=== PATIENT | female | born 1980 | race Hispanic/Latino ===

== ENCOUNTER 2016-06-30 09:25 | Emergency (ER) | payer BC ==
[2016-06-30 09:59] LABS: Basophils % (Auto) 0.4 % (0.0-1.8); Eosinophils % (Auto) 4.2 % (0.0-4.3); Hematocrit 42.8 % (30.3-42.9); Hemoglobin 14.2 gm/dl (10.1-14.3); Mean Corpuscular HGB Conc 33 % (30-34); Mean Corpuscular Hemoglobin 30 pg (28-32); Mean Corpuscular Volume 90 fl (79-97); Platelet Count 243 K/mm3 (140-440); Red Blood Count 4.75 M/mm3 (3.65-5.03); Red Cell Distribution Width 12.7 % (13.2-15.2); White Blood Count 5.9 K/mm3 (4.5-11.0)
--- NOTE | 2016-06-30 10:20 | Emergency Department Report ---
ED Abdominal Pain HPI - General Chief Complaint: Abdominal Pain Stated Complaint: ABD PAIN Time Seen by Provider: 06/30/16 10:17 Source: patient Mode of arrival: Ambulatory Limitations: No Limitations - History of Present Illness Initial Comments: The patient admits to having similar problems in the past. She states that she' s had irregular menses and has been treated with control pill there are. She is seeing now to workers compensation attorney in the [place] area. she's been evaluated by [facility] emergency department before. He has had similar left sided abdominal pain. However, she states at this time the pain is qualitatively different. She tells me that she doesn't want a prescription for Ultram because it "makes her sick". She's had no recent fever or chills. She does not complain of dysuria. She states that she uses 3 tampons a day recently but has no current bleeding. MD Complaint: abdominal pain, flank pain -: Gradual, hour(s) Location: LUQ, LLQ, L flank Radiation: none Migration to: no migration Severity: moderate Quality: aching Consistency: intermittent Improves With: nothing Worsens With: nothing Context: other - Related Data Home Medications Medication Instructions Recorded Confirmed Last Taken Norgestimate-Ethinyl Estradiol 1 each PO DAILY 06/30/16 06/30/16 06/29/16 [Sprintec 28 Day Tablet] Previous Rx's Medication Instructions Recorded Last Taken Type HYDROcodone/APAP 5-325 [[place] 1 each PO Q6HR PRN #10 tablet 06/30/16 Unknown Rx 5-325 mg TAB] Allergies Allergy/AdvReac Type Severity Reaction Status Date / Time tramadol Allergy Vomiting Verified 06/30/16 09:32 ED Review of Systems ROS: Stated complaint: ABD PAIN Other details as noted in HPI Constitutional: denies: chills, fever Eyes: denies: eye pain, eye discharge, vision change ENT: denies: ear pain, throat pain Respiratory: denies: cough, shortness of breath, wheezing Cardiovascular: denies: chest pain, palpitations Endocrine: no symptoms reported Gastrointestinal: as per HPI, abdominal pain. denies: nausea, diarrhea Genitourinary: denies: urgency, dysuria, discharge Musculoskeletal: as per HPI, back pain. denies: joint swelling, arthralgia Skin: denies: rash, lesions Neurological: denies: headache, weakness, paresthesias Psychiatric: denies: anxiety, depression Hematological/Lymphatic: denies: easy bleeding, easy bruising ED Past Medical Hx - Past Medical History Previous Medical History?: Yes Additional medical history: ovarian cyst - Surgical History Past Surgical History?: No - Social History Smoking Status: Never Smoker Substance Use Type: None - Medications Home Medications: Home Medications Medication Instructions Recorded Confirmed Last Taken Type HYDROcodone/APAP 5-325 [[place] 1 each PO Q6HR PRN #10 tablet 06/30/16 Unknown Rx 5-325 mg TAB] Norgestimate-Ethinyl Estradiol 1 each PO DAILY 06/30/16 06/30/16 06/29/16 History [Sprintec 28 Day Tablet] ED Physical Exam - General Limitations: No Limitations General appearance: alert, in no apparent distress - Head Head exam: Present: atraumatic, normocephalic - Eye Eye exam: Present: normal appearance. Absent: scleral icterus - ENT ENT exam: Present: mucous membranes moist - Neck Neck exam: Present: normal inspection - Respiratory Respiratory exam: Present: normal lung sounds bilaterally. Absent: respiratory distress - Cardiovascular Cardiovascular Exam: Present: regular rate, normal rhythm. Absent: systolic murmur, diastolic murmur, rubs, gallop - GI/Abdominal GI/Abdominal exam: Present: soft, normal bowel sounds. Absent: distended, tenderness, guarding, rebound, rigid, organomegaly, mass, bruit, pulsatile mass , hernia - Extremities Exam Extremities exam: Present: normal inspection - Back Exam Back exam: Present: normal inspection. Absent: CVA tenderness (R), CVA tenderness (L), muscle spasm, paraspinal tenderness, vertebral tenderness - Neurological Exam Neurological exam: Present: alert, oriented X3, CN II-XII intact. Absent: motor sensory deficit - Psychiatric Psychiatric exam: Present: normal affect, normal mood - Skin Skin exam: Present: warm, dry, intact, normal color. Absent: rash ED Course Vital Signs 06/30/16 06/30/16 06/30/16 09:29 09:32 09:36 Temperature 97.9 F Pulse Rate 111 H Respiratory 18 18 Rate Blood Pressure 148/64 O2 Sat by Pulse 100 98 98 Oximetry 06/30/16 06/30/16 10:00 11:18 Temperature Pulse Rate 79 Respiratory 14 Rate Blood Pressure 140/98 O2 Sat by Pulse 97 100 Oximetry - Reevaluation(s) Reevaluation #1: Patient was given analgesia. She did not complain of any severe pain. Her symptoms improved. Her ultrasound showed nothing acute was normal except for uterine fibroid. Outpatient follow-up was advised. 06/30/16 13:15 ED Medical Decision Making - Lab Data Result diagrams: 06/30/16 09:40 06/30/16 09:40 Laboratory Results - last 24 hr 06/30/16 06/30/16 09:40 09:40 WBC 5.9 RBC 4.75 Hgb 14.2 Hct 42.8 MCV 90 MCH 30 MCHC 33 RDW 12.7 L Plt Count 243 Lymph % (Auto) 22.3 [place] % (Auto) 7.5 H Eos % (Auto) 4.2 Baso % (Auto) 0.4 Lymph # 1.3 Fall[place] # 0.4 Eos # 0.2 Baso # 0.0 Seg Neutrophils % 65.6 Seg Neutrophils # 3.9 HCG, Qual Negative Laboratory Results - last 24 hr 06/30/16 06/30/16 06/30/16 09:40 09:40 09:40 WBC 5.9 RBC 4.75 Hgb 14.2 Hct 42.8 MCV 90 MCH 30 MCHC 33 RDW 12.7 L Plt Count 243 Lymph % (Auto) 22.3 [place] % (Auto) 7.5 H Eos % (Auto) 4.2 Baso % (Auto) 0.4 Lymph # 1.3 Fallon # 0.4 Eos # 0.2 Baso # 0.0 Seg Neutrophils % 65.6 Seg Neutrophils # 3.9 Sodium 139 Potassium 3.9 Chloride 102.5 Carbon Dioxide 25 Anion Gap 15 BUN 8 Creatinine 0.5 L Estimated GFR > 60 BUN/Creatinine Ratio 16.00 Glucose 113 H Calcium 9.6 Total Bilirubin 0.5 AST 16 ALT 11 Alkaline Phosphatase 38 Total Protein 7.6 Albumin 4.8 Albumin/Globulin Ratio 1.7 Lipase 37 HCG, Qual Negative Urine Color Urine Turbidity Urine pH Ur Specific [place] Urine Protein Urine Glucose (UA) Urine Ketones Urine Blood Urine Nitrite Urine Bilirubin Urine Urobilinogen Ur Leukocyte Esterase Urine WBC (Auto) Urine RBC (Auto) U Epithel Cells (Auto) Urine Opiates Screen Urine Methadone Screen Ur Barbiturates Screen Ur Phencyclidine Scrn Ur Amphetamines Screen U Benzodiazepines Scrn Urine Cocaine Screen U Marijuana (THC) Screen Drugs of Abuse Note 06/30/16 06/30/16 11:28 11:28 WBC RBC Hgb Hct MCV MCH MCHC RDW Plt Count Lymph % (Auto) Fall[place] % (Auto) Eos % (Auto) Baso % (Auto) Lymph # Fall[place] # Eos # Baso # Seg Neutrophils % Seg Neutrophils # Sodium Potassium Chloride Carbon Dioxide Anion Gap BUN Creatinine Estimated GFR BUN/Creatinine Ratio Glucose Calcium Total Bilirubin AST ALT Alkaline Phosphatase Total Protein Albumin Albumin/Globulin Ratio Lipase HCG, Qual Urine Color Straw Urine Turbidity Clear Urine pH 7.0 Ur Specific [place] 1.008 Urine Protein <15 mg/dl Urine Glucose (UA) Neg Urine Ketones Neg Urine Blood Sm Urine Nitrite Neg Urine Bilirubin Neg Urine Urobilinogen < 2.0 Ur Leukocyte Esterase Neg Urine WBC (Auto) < 1.0 Urine RBC (Auto) 2.0 U Epithel Cells (Auto) 1.0 Urine Opiates Screen Presumptive negative Urine Methadone Screen Presumptive negative Ur Barbiturates Screen Presumptive negative Ur Phencyclidine Scrn Presumptive negative Ur Amphetamines Screen Presumptive negative U Benzodiazepines Scrn Presumptive negative Urine Cocaine Screen Presumptive negative U Marijuana (THC) Screen Presumptive negative Drugs of Abuse Note Disclamer Critical care attestation.: If time is entered above; I have spent that time in minutes in the direct care of this critically ill patient, excluding procedure time. ED Disposition Clinical Impression: Left flank pain, Dysfunctional uterine bleeding Abdominal pain Qualifiers: Abdominal location: left lower quadrant Qualified Code(s): R10.32 - Left lower quadrant pain Disposition: DISCHARGED TO HOME OR SELFCARE Is pt being admited?: No Does the pt Need Aspirin: No Condition: Stable Instructions: Abdominal Pain (ED), Flank Pain (ED), Dysfunctional Uterine Bleeding (ED) Additional Instructions: Follow-up with your usual workers compensation attorney. Return any acute change or problem. Prescriptions: HYDROcodone/APAP 5-325 [[place] 5-325 mg TAB] 1 each PO Q6HR PRN #10 tablet PRN Reason: pain Referrals: PRIMARY CARE,MD [Primary Care Provider] - 3-5 Days usual, workers compensation attorney [Other] - 2-3 Days Time of Disposition: 13:35
[2016-06-30 10:22] LABS: Alanine Aminotransferase 11 units/L (7-56); Albumin 4.8 g/dL (3.9-5); Albumin/Globulin Ratio 1.7 %; Alkaline Phosphatase 38 units/L (35-129); Anion Gap 15 mmol/L; Bilirubin,Total 0.5 mg/dL (0.1-1.2); Blood Urea Nitrogen 8 mg/dL (7-17); Calcium 9.6 mg/dL (8.4-10.2); Carbon Dioxide 25 mmol/L (22-30); Chloride 102.5 mmol/L (98-107); Glucose 113 mg/dL (65-100); Lipase 37 units/L (13-60); Potassium 3.9 mmol/L (3.6-5.0); Sodium 139 mmol/L (137-145); Total Protein 7.6 g/dL (6.3-8.2)
[2016-06-30] MEDS ORDERED: TORADOL IV ONE (10:56)
[2016-06-30 11:28] VITALS: BP 140/98
[2016-06-30 11:30] LABS: Urine Drugs of Abuse Note Disclamer
[2016-06-30 11:50] LABS: Bilirubin,Urine NEG (Negative); Blood,Urine SM (Negative); Ketones,Urine NEG (Negative); Leukocyte Esterase,Urine NEG (Negative); Nitrite,Urine NEG (Negative); Protein,Urine <15 mg/dL mg/dL (Negative); Urobilinogen,Urine < 2.0 mg/dL (<2.0); WBC,Urine < 1.0 /HPF (0.0-6.0)
--- NOTE | 2016-06-30 12:56 | Ultrasound Report ---
Complete abdominal ultrasound: Images of the liver, spleen, pancreas, and gallbladder are unremarkable. The diameter of the CBD is 3.9 mm. The diameter of the proximal abdominal aorta is 1.6 cm. The right renal length is 13.2 cm and the left length is 12.5 cm. Both kidneys appeared echogenically normal. Impression: No significant findings. Pelvic ultrasound: Endovaginal and transabdominal imaging is performed. The uterus is anteverted and measures 3.4 x 5.4 x 6.2 cm. It is generally homogeneous. There is a small posterior relatively isoechoic nodule measuring 8 mm. The endometrial thickness is 4.4 mm and unremarkable. The left ovary measures 2.3 cm and the right measures 2.2 cm. Both are echogenically unremarkable. Minimal free fluid. Impression: Small uterine fibroid. No other findings.
[2016-06-30] MEDS ORDERED: NORCO 5/325 PO ONE (13:32)
== END 2016-06-30 14:35 | disposition home or self-care (01) ==
LOC: ED 09:25
DX: N93.8 Other specified abnormal uterine and vaginal bleeding (principal); R10.32 Left lower quadrant pain
CPT/HCPCS: 36415; 76700; 76830; 76856; 80053; 80307; 81001; 83690; 84703; 85025; 96374; 99284; J1885

== ENCOUNTER 2017-04-15 12:20 | Emergency (ER) | payer BC ==
[2017-04-15] MEDS ORDERED: ASPIRIN PO ONE (12:30)
[2017-04-15 13:18] LABS: Basophils % (Auto) 0.2 % (0.0-1.8); Eosinophils % (Auto) 0.3 % (0.0-4.3); Hematocrit 40.2 % (30.3-42.9); Hemoglobin 13.6 gm/dl (10.1-14.3); Lymphocytes # (Auto) 1.7 K/mm3 (1.2-5.4); Lymphocytes % (Auto) 19.4 % (13.4-35.0); Mean Corpuscular HGB Conc 34 % (30-34); Mean Corpuscular Hemoglobin 31 pg (28-32); Mean Corpuscular Volume 92 fl (79-97); Monocytes # (Auto) 0.5 K/mm3 (0.0-0.8); Monocytes % (Auto) 5.4 % (0.0-7.3); Platelet Count 241 K/mm3 (140-440); Red Blood Count 4.36 M/mm3 (3.65-5.03); Red Cell Distribution Width 12.2 % (13.2-15.2)
[2017-04-15 13:36] LABS: BUN/Creatinine Ratio 20; Blood Urea Nitrogen 10 mg/dL (7-17); Calcium 9.1 mg/dL (8.4-10.2); Hemolysis Index 12
--- NOTE | 2017-04-15 15:15 | XRay Report ---
ROUTINE CHEST, TWO VIEWS: HISTORY: chest pain. The trachea, heart, mediastinal contour, lung zendejas and bony thorax are unremarkable. IMPRESSION: Unremarkable chest x-ray.
[2017-04-15 16:05] VITALS: BP 137/93
--- NOTE | 2017-04-15 16:16 | Emergency Department Report ---
ED Chest Pain HPI - General Chief Complaint: Chest Pain Stated Complaint: CHEST TIGHTNESS Time Seen by Provider: 04/15/17 15:47 Source: patient Mode of arrival: Ambulatory Limitations: No Limitations - History of Present Illness Initial Comments: This is a 36 y.o. female presents with chest tightness, burning sensation in face, and dizziness. Symptoms started today at work. She has experienced similar symptoms 2-3 days ago at home. Chest tightness was from right to left breast without radiation. It feels like the mendoza a narrowing when this happens. Reports feeling like something is sitting on her chest. 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 She is followed by [employer] for fibroids and wondered if this could possibly cause chest pain. Last menses was 2 weeks ago and the first normal cycle in a long time. She is going to a new family practice on 04/29/[address] Chen[facility] [place]. MD Complaint: chest pain -: Sudden Onset: during rest Pain Location: left chest, right chest Pain Radiation: none Severity: moderate Severity scale (0 -10): 7 Quality: tightness, pressure Consistency: now resolved Improves With: medication-other (aspirin), rest Worsens With: nothing re: denies: nausea, vomting, diaphoresis, dyspnea, sense of impending doom Other Symptoms: other (dizziness and burning sensation to face). denies: cough , fever, syncope, rash, acid taste in mouth, leg swelling, palpitations, burping - Related Data On Oral Contraceptives: Yes Home Medications Medication Instructions Recorded Confirmed Last Taken Norgestimate-Ethinyl Estradiol 1 each PO DAILY 06/30/16 06/30/16 06/29/16 [Sprintec 28 Day Tablet] Previous Rx's Medication Instructions Recorded Last Taken Type HYDROcodone/APAP 5-325 [[place] 1 each PO Q6HR PRN #10 tablet 06/30/16 Unknown Rx 5-325 mg TAB] Hydroxyzine HCl 25 mg PO Q8H PRN #10 tablet 04/15/17 Unknown Rx Allergies Allergy/AdvReac Type Severity Reaction Status Date / Time tramadol Allergy Vomiting Verified 06/30/16 09:32 Heart Score - HEART Score History: Slightly suspicious EKG: Normal Age: < 45 Risk factors: 1-2 risk factors Troponin: < normal limit HEART Score: 1 ED Review of Systems ROS: Stated complaint: CHEST TIGHTNESS Other details as noted in HPI Constitutional: denies: chills, fever Respiratory: denies: cough, orthopnea, shortness of breath, SOB with exertion, SOB at rest, stridor, wheezing Cardiovascular: chest pain Gastrointestinal: denies: abdominal pain, nausea, diarrhea Neurological: headache, vertigo. denies: weakness, numbness, paresthesias, confusion, abnormal gait Psychiatric: anxiety (reports feeling anxieous now). denies: depression, auditory hallucinations, visual hallucinations, homicidal thoughts, suicidal thoughts ED Past Medical Hx - Past Medical History Previous Medical History?: Yes Additional medical history: ovarian cyst. uterine Fibroids - Surgical History Past Surgical History?: No - Family History Family history: CAD/NM (father) - Social History Smoking Status: Never Smoker Substance Use Type: Alcohol - Medications Home Medications: Home Medications Medication Instructions Recorded Confirmed Last Taken Type HYDROcodone/APAP 5-325 [[place] 1 each PO Q6HR PRN #10 tablet 06/30/16 Unknown Rx 5-325 mg TAB] Norgestimate-Ethinyl Estradiol 1 each PO DAILY 06/30/16 06/30/16 06/29/16 History [Sprintec 28 Day Tablet] Hydroxyzine HCl 25 mg PO Q8H PRN #10 tablet 04/15/17 Unknown Rx ED Physical Exam - General Limitations: No Limitations General appearance: alert, in no apparent distress - Respiratory Respiratory exam: Present: normal lung sounds bilaterally. Absent: respiratory distress - Cardiovascular Cardiovascular Exam: Present: regular rate, normal rhythm, normal heart sounds. Absent: systolic murmur, diastolic murmur, rubs, gallop, clicks - GI/Abdominal GI/Abdominal exam: Present: soft, normal bowel sounds - Neurological Exam Neurological exam: Present: alert, oriented X3 - Psychiatric Psychiatric exam: Present: depressed, flat affect. Absent: anxious, manic, homicidal ideation, suicidal ideation - Skin Skin exam: Present: warm, dry, intact, normal color. Absent: rash ED Course Vital Signs 04/15/17 04/15/17 12:25 16:01 Temperature 97.6 F Pulse Rate 97 H 88 Respiratory 16 18 Rate Blood Pressure 175/109 137/93 O2 Sat by Pulse 99 99 Oximetry JOSIE score - Josie Score Age > 65: (0) No Aspirin use within the Past 7 Days: (1) Yes 3 or more CAD Risk Factors: (0) No 2 or more Angina events in past 24 hrs: (0) No Known CAD with more than 50% Stenosis: (0) No Elevated Cardiac Markers: (0) No ST Deviation Greater than 0.5mm: (0) No JOSIE Score: 1 ED Medical Decision Making - Lab Data Result diagrams: 04/15/17 13:05 04/15/17 13:05 - Radiology Data Radiology results: image reviewed Chest X-ray IMPRESSION: Unremarkable chest x-ray. - Medical Decision Making This is a 36 y.o. female presents with chest tightness, burning sensation in face, and dizziness today. Employee at [employer], went to [employer] when symptoms started around 1220. She was given 4 aspirin, reports feeling relief, but still having chest pain. Normal CXR, troponin, D-dimer, CBC, BMP, influenza. Susceptible of Panic Attack. Discharged home with hydroxyzine. Follow up with PCP. Critical care attestation.: If time is entered above; I have spent that time in minutes in the direct care of this critically ill patient, excluding procedure time. ED Disposition Clinical Impression: Panic attack Chest pain Qualifiers: Chest pain type: other chest pain Qualified Code(s): R07.89 - Other chest pain Disposition: DC-01 TO HOME OR SELFCARE Is pt being admited?: No Does the pt Need Aspirin: No Condition: Stable Instructions: Chest Pain (ED) Additional Instructions: Do not drive or operate heavy machinery while taking this medication. Medication will cause drowsiness. Follow up with primary care provider on 04/29/2017 or before if symptoms persist. Prescriptions: Hydroxyzine HCl 25 mg PO Q8H PRN #10 tablet PRN Reason: Anxiety Referrals: PRIMARY CARE, [Primary Care Provider] - 3-5 Days [facility] [Outside] - 3-5 Days [facility] [Outside] - 3-5 Days Time of Disposition: 17:12 Print Language: SETSWANA
== END 2017-04-15 17:22 | disposition home or self-care (01) ==
LOC: ED 12:20
DX: F41.0 Panic disorder [episodic paroxysmal anxiety] (principal); Z88.6 Allergy status to analgesic agent
CPT/HCPCS: 36415; 71046; 80048; 84484; 85025; 85379; 87400; 93005; 93010; 99284

== ENCOUNTER 2017-09-28 13:22 | Outpatient (CLI) | payer BC ==
--- NOTE | 2017-09-28 13:49 | XRay Report ---
RIGHT WRIST, 4 VIEWS: History: wrist pain, injury. Routine views demonstrate the carpal bones to be well mineralized with well preserved bony mineralization and interosseous joint spaces. The carpal and adjacent articular bones have normal contours. The surrounding soft tissues are unremarkable. IMPRESSION: Unremarkable right wrist.
== END 2017-09-28 13:23 | disposition home or self-care (01) ==
LOC: XRAY 13:22
PROVIDERS: ATTEND Internal Medicine
DX: M25.531 Pain in right wrist (principal)

== ENCOUNTER 2018-07-10 09:01 | Outpatient (CLI) | payer BC ==
--- NOTE | 2018-07-10 15:29 | Ultrasound Report ---
Pelvic ultrasound: Left lower quadrant pain. Endovaginal and transabdominal imaging performed. The uterus is anteverted and measures 3.4 x 4.9 x 8.6 cm. The uterus is mildly heterogeneous but there is no focal mass. The endometrial thickness is 4 mm and echogenic we unremarkable. The left ovary measures 3 cm and the right 2.5 cm. Both have normal echogenicity with several left and one right follicle. No free fluid. The uterus appears generally unchanged compared to prior exam in June 2016. Impression: Nonspecific uterine heterogeneity.
== END 2018-07-10 09:02 | disposition home or self-care (01) ==
LOC: US 09:01
PROVIDERS: ATTEND Obstetrics & Gynecology
DX: N92.3 Ovulation bleeding (principal); R10.32 Left lower quadrant pain
CPT/HCPCS: 76830; 76856

== ENCOUNTER 2019-10-01 10:08 | Outpatient (CLI) | payer BC ==
--- NOTE | 2019-10-01 18:50 | Ultrasound Report ---
US pelvic complete, US transvaginal INDICATION / CLINICAL INFORMATION: LLQ PAIN. COMPARISON: 07/10/2018 FINDINGS: The uterus measures 9 cm with the 12 mm endometrial stripe thickness. Myometrial echogenicity is inhomogeneous. The right ovary measures 3.8 x 2.8 cm with a 2.1 cm cyst. The left ovary measures 3.2 x 2.1 cm. No fluid collections are seen in the cul-de-sac. IMPRESSION: 1. Heterogeneous myometrial echogenicity, unchanged since 2019. 2. 2 cm right ovarian cyst. Signer Name: Khadar Castro MD Signed: 10/01/2019 6:45 PM Workstation Name: [id number]
== END 2019-10-01 10:09 | disposition home or self-care (01) ==
LOC: US 10:08
PROVIDERS: ATTEND Obstetrics & Gynecology
DX: N83.291 Other ovarian cyst, right side (principal); R93.89 Abnormal findings on diagnostic imaging of other specified body structures
CPT/HCPCS: 76830; 76856

== ENCOUNTER 2020-04-22 10:09 | Outpatient (CLI) | payer BC ==
[2020-04-22 10:49] LABS: Basophils % (Auto) 0.4 % (0.0-1.8); Eosinophils # (Auto) 0.2 K/mm3 (0.0-0.4); Eosinophils % (Auto) 2.2 % (0.0-4.3); Hematocrit 39.6 % (30.3-42.9); Hemoglobin 13.3 gm/dl (10.1-14.3); Lymphocytes # (Auto) 1.4 K/mm3 (1.2-5.4); Lymphocytes % (Auto) 17.8 % (13.4-35.0); Mean Corpuscular HGB Conc 34 % (30-34); Mean Corpuscular Volume 96 fl (79-97); Monocytes # (Auto) 0.4 K/mm3 (0.0-0.8); Monocytes % (Auto) 5.3 % (0.0-7.3); Platelet Count 260 K/mm3 (140-440); Red Blood Count 4.11 M/mm3 (3.65-5.03); Red Cell Distribution Width 13.1 % (13.2-15.2)
[2020-04-22 11:11] LABS: Alanine Aminotransferase 19 units/L (7-56); Blood Urea Nitrogen 13 mg/dL (7-17); Calcium 9.6 mg/dL (8.4-10.2); Chol/HDL Ratio 2.18 %; HDL Cholesterol 99 mg/dL (40-59); Hemolysis Index 4; LDL Cholesterol,Direct 123 mg/dL (50-130)
[2020-04-22 11:13] LABS: BUN/Creatinine Ratio 22
== END 2020-04-22 10:10 | disposition home or self-care (01) ==
LOC: LAB 10:09
PROVIDERS: ATTEND Internal Medicine
DX: Z00.00 Encounter for general adult medical examination without abnormal findings (principal); Z13.1 Encounter for screening for diabetes mellitus; Z13.21 Encounter for screening for nutritional disorder; Z13.220 Encounter for screening for lipoid disorders
CPT/HCPCS: 36415; 80053; 80061; 82306; 82607; 83036; 84443; 85025